=== PATIENT | male | born 1935 | race Caucasian/White ===

== ENCOUNTER 2017-03-26 07:29 | Day surgery (SDC) | payer MEDICARE ==
[~2017-03-26 07:29] MED LIST: Buffered Lidocaine 0.9% SYRIN* 5 ML/SYR SYRINGE INTRADERM ONE
[2017-03-26] MEDS ORDERED: ceFAZolin 2 GM PREMIX (*) 50 ML IVPB ONE (07:53)
[2017-03-26] MEDS ORDERED: Bupivacaine 0.25% SDV* 30 ML ONE (08:36)
[2017-03-26] MEDS ORDERED: Lidocaine 1% MPF wEPI 200,000* 30 ML SDV ONE (08:36)
[2017-03-26] MEDS ORDERED: Methylene Blue 0.5 %* 50 MG/10 ML AMP IV ONE (08:37)
[2017-03-26] MEDS ORDERED: Mineral Oil Sterile, TOPICAL* 25 ML BTL ONE (08:37)
[2017-03-26] MEDS ORDERED: Midazolam* 1 MG/ML 5 ML VIAL (5 MG) ONE (08:46)
[2017-03-26] MEDS ORDERED: fentaNYL* 50 MCG/ML 2 ML VIAL (100 MCG VIAL) ONE (09:05)
[2017-03-26] MEDS ORDERED: Dexamethasone IV* 4 MG/ML 1 ML (4 MG) ONE (09:05)
[2017-03-26] MEDS ORDERED: Ondansetron INJ* 2 MG/ML VIAL ONE (09:45)
[2017-03-26] MEDS ORDERED: HYDROcodone/ACETAMIN 5-325 MG* 1 TAB PO PRN (09:52)
[2017-03-26] MEDS ORDERED: oxyCODONE TAB* 5 MG TAB PO PRN (09:52)
[2017-03-26] MEDS ORDERED: Ondansetron INJ* 2 MG/ML VIAL IV PRN (09:52)
[2017-03-26] MEDS ORDERED: fentaNYL* 50 MCG/ML 2 ML VIAL (100 MCG VIAL) IV PRN (09:52)
[2017-03-26 10:43] VITALS: BP 160/70
== END 2017-03-26 10:34 | disposition home or self-care (01) ==
LOC: OREAST 07:29
PROVIDERS: ATTEND Plastic Surgery
DX: C44.311 Basal cell carcinoma of skin of nose (principal); I25.10 Atherosclerotic heart disease of native coronary artery without angina pectoris; Z95.1 Presence of aortocoronary bypass graft; I10 Essential (primary) hypertension; N18.3 Chronic kidney disease, stage 3 (moderate); E11.9 Type 2 diabetes mellitus without complications; Z79.84 Long term (current) use of oral hypoglycemic drugs; M19.90 Unspecified osteoarthritis, unspecified site
CPT/HCPCS: A9270-GY; J0690; J1100; J2001; J2250; J2405; J3010

== ENCOUNTER 2018-11-04 08:01 | Emergency (ER) | payer MEDICARE ==
[2018-11-04 08:11] VITALS: BP 147/69
--- NOTE | 2018-11-04 09:13 | UC ---
Bite Injury/Animal HPI - HPI Summary HPI Summary: 82-year-old male comes in with a chief complaint of a tick attacks of the scrotum. He found it this morning. He attempts to remove and got part of the tick off. Part of the tick remains. No pain no rash feels well otherwise. - History of Current Complaint Chief Complaint: Dinesh Stated Complaint: TICKBITE PERSONNAL Time Seen by Provider: 11/04/18 08:58 Pain Intensity: 0 - Allergies/Home Medications Allergies/Adverse Reactions: Allergies Allergy/AdvReac Type Severity Reaction Status Date / Time SAQIB Inhibitors Allergy Unknown Verified 11/04/18 08:16 Reaction Details niacin Allergy Flushing Verified 11/04/18 08:16 quinapril [From Accupril] Allergy Coughing Verified 11/04/18 08:16 ranolazine [From Ranexa] Allergy Flushing Verified 11/04/18 08:16 valacyclovir [From Valtrex] Allergy Flushing Verified 11/04/18 08:16 PEANUTS Allergy Severe Anaphylatic Uncoded 11/04/18 08:16 Shock SESAME Allergy Unknown Uncoded 11/04/18 08:16 Reaction Details shellfish Allergy Anaphylatic Uncoded 11/04/18 08:16 Shock PMH/Surg Hx/FS Hx/Imm Hx Previously Healthy: Yes Endocrine History: Diabetes, Dyslipidemia Cardiovascular History: Hypertension - Surgical History Surgical History: Yes Surgery Procedure, Year, and Place: 4 WAY HEART BYPASS 2001. LEFT HIP REPLACEMENT 2009. BILATERAL CARPAL TUNNEL 2009. GALLBLADDER REMOVED . APPENDECTOMY ,cervical spine 05/2012,lumbar 09/2012. 2014 Hip Replacement Revision. Cataracts 1995,1996. CERVICAL SPINE SURGERY 2 YRS AGO. LUMBAR SURGERY 2 YRS AGO - Family History Known Family History: Positive: Non-Contributory - Social History Alcohol Use: Occasionally Alcohol Amount: WINE/NIGHT Substance Use Type: None Substance Use Comment - Amount & Last Used: hydrocodone when needed for pain Smoking Status (MU): Never Smoked Tobacco Amount Used/How Often: smoked for 10 years 1 ppd Have You Smoked in the Last Year: No When Did the Patient Quit Smoking/Using Tobacco: 1970 Review of Systems All Other Systems Reviewed And Are Negative: Yes Constitutional: Positive: Negative Skin: Positive: Other - SEE HPI Eyes: Positive: Negative ENT: Positive: Negative Respiratory: Positive: Negative Cardiovascular: Positive: Negative Gastrointestinal: Positive: Negative Motor: Positive: Negative Neurovascular: Positive: Negative Musculoskeletal: Positive: Negative Neurological: Positive: Negative Psychological: Positive: Negative Is Patient Immunocompromised?: No Physical Exam Triage Information Reviewed: Yes Appearance: Well-Appearing, No Pain Distress, Well-Nourished Vital Signs: Initial Vital Signs Temp 97.6 F 11/04/18 08:09 Pulse 67 11/04/18 08:09 Resp 17 11/04/18 08:09 BP 147/69 11/04/18 08:09 Pulse Ox 100 11/04/18 08:09 Vital Signs Reviewed: Yes Eye Exam: Normal Eyes: Positive: Conjunctiva Clear Neck: Positive: Supple Respiratory: Positive: No respiratory distress Musculoskeletal Exam: Normal Musculoskeletal: Positive: Strength Intact, ROM Intact Neurological Exam: Normal Neurological: Positive: Alert, Muscle Tone Normal Psychological Exam: Normal Psychological: Positive: Age Appropriate Behavior Skin: Positive: Other - PARTIAL TICK ATTACHED TO SCROTUM, NO RASH, I REMOVED WITH A TICK TWISTER Bite Injury Course/Dx - Differential Dx/Diagnosis Provider Diagnosis: Tick bite of scrotum Discharge - Sign-Out/Discharge Documenting (check all that apply): Patient Departure All imaging exams completed and their final reports reviewed: No Studies - Discharge Plan Condition: Stable Disposition: HOME Prescriptions: DOXYcycline CAP(*) [DOXYcycline 100MG CAP(*)] 200 mg PO ONCE #2 cap Patient Education Materials: Tick Bite (ED) Referrals: Dominguez Tracey MD [Primary Care Provider] - Additional Instructions: FOLLOW UP WITH YOUR DOCTOR IF NOT COMPLETELY IMPROVED. GET RECHECKED SOONER IF YOUR CONDITION WORSENS; BULLS EYE RASH, SIGNS OF LYME DISEASE OR ANY QUESTIONS OR CONCERNS. - Billing Disposition and Condition Condition: STABLE Disposition: Home
== END 2018-11-04 09:21 | disposition home or self-care (01) ==
LOC: UCEAST 08:01
DX: T63.481A Toxic effect of venom of other arthropod, accidental (unintentional), initial encounter (principal); Y92.9 Unspecified place or not applicable; Z95.1 Presence of aortocoronary bypass graft; Z87.891 Personal history of nicotine dependence
CPT/HCPCS: 99212; G0463

== ENCOUNTER 2018-11-29 09:41 | Emergency (ER) | payer MEDICARE ==
[2018-11-29 09:56] VITALS: BP 174/57
--- NOTE | 2018-11-29 10:00 | UC ---
Lower Extremity/Ankle HPI - HPI Summary HPI Summary: 83-year-old male who was walking up to his steps with his doc sent when the docks and lurched and the patient fell injuring the anterior portion of his left lower tib-fib. He had 2 abrasions there and one just below his left knee for which she has been applying Neosporin ointment however the abrasions have not healed well. He is a [id number]-[id number] diabetic. Last tetanus was in the past 8 years according to the patient's. - History of Current Complaint Chief Complaint: UCLowerExtremity Stated Complaint: LT LEG INJURY Time Seen by Provider: 11/29/18 09:51 Hx Obtained From: Patient Onset/Duration: Sudden Onset Severity Initially: Mild Severity Currently: Moderate Pain Intensity: 8 Aggravating Factor(s): Nothing Alleviating Factor(s): Rest Able to Bear Weight: Yes - Allergies/Home Medications Allergies/Adverse Reactions: Allergies Allergy/AdvReac Type Severity Reaction Status Date / Time SAQIB Inhibitors Allergy Unknown Verified 11/29/18 09:57 Reaction Details ibuprofen Allergy See Comment Verified 11/29/18 10:01 niacin Allergy Flushing Verified 11/29/18 09:57 quinapril [From Accupril] Allergy Coughing Verified 11/29/18 09:57 ranolazine [From Ranexa] Allergy Flushing Verified 11/29/18 09:57 valacyclovir [From Valtrex] Allergy Flushing Verified 11/29/18 09:57 PEANUTS Allergy Severe Anaphylatic Uncoded 11/29/18 09:57 Shock SESAME Allergy Unknown Uncoded 11/29/18 09:57 Reaction Details shellfish Allergy Anaphylatic Uncoded 11/29/18 09:57 Shock Home Medications: Home Medications Acetaminophen [Mapap] 650 mg PO ONCE PRN 11/29/18 [History Confirmed 11/29/18] Vitamin B Complex [Super B-50 Complex] 1 tab PO DAILY 11/29/18 [History Confirmed 11/29/18] PMH/Surg Hx/FS Hx/Imm Hx Previously Healthy: Yes Endocrine History: Diabetes - Bgq-[id number]-[id number] diabetes Cardiovascular History: Hypertension, Other - Cardiac bypass surgery. - Surgical History Surgical History: Yes Surgery Procedure, Year, and Place: 4 WAY HEART BYPASS 2001. LEFT HIP REPLACEMENT 2009. BILATERAL CARPAL TUNNEL 2009. GALLBLADDER REMOVED . APPENDECTOMY ,cervical spine 05/2012,lumbar 09/2012. 2014 Hip Replacement Revision. Cataracts 1995,1996. CERVICAL SPINE SURGERY 2 YRS AGO. LUMBAR SURGERY 2 YRS AGO - Family History Known Family History: Positive: Non-Contributory - Social History Occupation: Retired Alcohol Use: Daily Alcohol Amount: WINE/NIGHT Substance Use Type: None Substance Use Comment - Amount & Last Used: hydrocodone when needed for pain Smoking Status (MU): Never Smoked Tobacco Amount Used/How Often: smoked for 10 years 1 ppd Have You Smoked in the Last Year: No When Did the Patient Quit Smoking/Using Tobacco: 1969 Review of Systems All Other Systems Reviewed And Are Negative: Yes Skin: Positive: Other - Patient has 3 superficial abrasions, 2 to the lower left adams, and one just below the left knee. He has been putting Neosporin ointment on those areas but they have not healed. Musculoskeletal: Positive: Other: - Patient complains of pain to the distal tib- fib. Is Patient Immunocompromised?: No Physical Exam Triage Information Reviewed: Yes Appearance: Well-Appearing, No Pain Distress, Well-Nourished Vital Signs: Initial Vital Signs Temp 98 F 11/29/18 09:50 Pulse 57 11/29/18 09:50 Resp 18 11/29/18 09:50 BP 174/57 11/29/18 09:50 Pulse Ox 96 11/29/18 09:50 Vital Signs Reviewed: Yes Musculoskeletal: Positive: Strength Intact, ROM Intact, Other: - Patient does have pain on palpation to the distal tib-fib anteriorly. No deformity is noted. Neurological: Positive: Alert, Muscle Tone Normal Psychological Exam: Normal Skin: Positive: Other - 3 superficial skin abrasions, 2 to the anterior distal tib-fib and one just below the left knee. There is minimal erythema present, no active drainage however there is some yellow purulent drainage just at the abrasions themselves. Lower Extremity Course/Dx - Course Course Of Treatment: Left tib-fib x-ray:FINDINGS: BONE DENSITY: Normal. BONES: There is no displaced fracture. 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 ALIGNMENT: There is no dislocation. SOFT TISSUES: Surgical clips are noted along the medial calf. There is peripheral arterial calcification. OTHER FINDINGS: None. IMPRESSION: 1. OSTEOARTHRITIS. 2. PERIPHERAL ARTERIAL DISEASE. 3. NO ACUTE OSSEOUS INJURY. IF SYMPTOMS PERSIST, RECOMMEND REPEAT IMAGING. I advised the patient to purchase bacitracin ointment and use that instead of Neosporin. They can change dressings daily. The patient and preferred not to have the wounds cleaned here or the dressings changed, she would rather do it at home. Patient's last tetanus was in the last 8 years. At this point time I don't feel this is a cellulitis or an infection but rather just some local reaction from the Neosporin. - Differential Dx/Diagnosis Provider Diagnosis: Abrasions of multiple sites Discharge - Sign-Out/Discharge Documenting (check all that apply): Patient Departure All imaging exams completed and their final reports reviewed: Yes - Discharge Plan Condition: Fair Disposition: HOME Patient Education Materials: Abrasion (ED) Referrals: Zari Braun MD [Primary Care Provider] - Additional Instructions: Change the dressings daily. Do not apply Neosporin ointment, apply bacitracin ointment instead. Definite follow-up with your primary care provider if no improvement in 4 or 5 days. - Billing Disposition and Condition Condition: FAIR Disposition: Home
== END 2018-11-29 11:20 | disposition home or self-care (01) ==
LOC: UCEAST 09:41
DX: S80.812A Abrasion, left lower leg, initial encounter (principal); W18.30XA Fall on same level, unspecified, initial encounter; Y93.19 Activity, other involving water and watercraft; Y92.838 Other recreation area as the place of occurrence of the external cause; Y99.8 Other external cause status; E11.9 Type 2 diabetes mellitus without complications; I10 Essential (primary) hypertension
CPT/HCPCS: 99211; G0463